=== PATIENT | female | born 1960 | race Caucasian/White ===

== ENCOUNTER 2018-02-19 12:32 | Emergency (ER) | payer BC ==
[2018-02-19 12:49] VITALS: BP 115/67
--- NOTE | 2018-02-19 12:53 | UC ---
Respiratory Complaint HPI - HPI Summary HPI Summary: Pt presents with body aches, head congestion, and dry cough for the last 4 days. She has felt feverish, but has not taken her temperature. Has also been taking OTC cold and flu medication with good relief. Does feel SOB at times, especially when coughing. Denies chest pain, abdominal pain, n/v/d/c. - History of Current Complaint Chief Complaint: UCGeneralIllness Stated Complaint: COUGH, AND CHEST CONGESTION Time Seen by Provider: 02/19/18 12:53 Hx Obtained From: Patient Onset/Duration: Gradual Onset Severity Initially: Moderate Severity Currently: Severe Pain Intensity: 9 Pain Scale Used: 0-10 Numeric Character: Cough: Nonproductive - Allergies/Home Medications Allergies/Adverse Reactions: Allergies Allergy/AdvReac Type Severity Reaction Status Date / Time No Known Allergies Allergy Verified 02/19/18 12:40 Home Medications: Home Medications SUMAtriptan SQ* [Imitrex SQ*] 02/19/18 [History] PMH/Surg Hx/FS Hx/Imm Hx Previously Healthy: Yes Neurological History: Migraine - Surgical History Surgical History: Yes Surgery Procedure, Year, and Place: tonsillectomy - Family History Known Family History: Positive: Unknown - Social History Occupation: Employed Full-time Lives: With Family Alcohol Use: Rare Substance Use Type: None Smoking Status (MU): Never Smoked Tobacco Review of Systems Constitutional: Other - Bodyaches Skin: Negative Eyes: Negative ENT: Ear Ache, Sinus Congestion Respiratory: Cough Cardiovascular: Negative Gastrointestinal: Negative Neurovascular: Negative Neurological: Headache Psychological: Negative All Other Systems Reviewed And Are Negative: Yes Physical Exam - Summary Physical Exam Summary: GENERAL: NAD. WDWN. No pain distress. SKIN: No rashes, sores, ulcers, masses, lesions. HEENT: Head: AT/NC Eyes: Conjunctiva clear without inflammation or discharge. Ears: Hearing grossly normal. TMs intact, no bulging, erythema, or edema. Nose: Nasal mucosa mildly swollen and erythematous with yellow/ clear discharge. TTP maxillary and frontal sinus. Throat: Posterior oropharynx without exudates, erythema, or tonsillar enlargement. Uvula midline. NECK: Supple. Nontender. No lymphadenopathy. CHEST: Moderate wheezing right>left. No r/r. No accessory muscle use. Breathing comfortably and in no distress. CV: RRR. Without m/r/g. Pulses intact. Brisk cap refill. NEURO: Alert. CN II-XII grossly intact. PSYCH: Age appropriate behavior. Triage Information Reviewed: Yes Vital Signs: Initial Vital Signs Temp 97.8 F 02/19/18 12:42 Pulse 73 02/19/18 12:42 Resp 20 02/19/18 12:42 BP 115/67 02/19/18 12:42 Pulse Ox 95 02/19/18 12:42 Diagnostic Evaluation - Laboratory O2 Sat by Pulse Oximetry: 95 Re-Evaluation - Re-Evaluation First Eval Re-Evaluation Time: 13:45 Change: Improved - SOB improved s/p duoneb. Formoso easier to get a deep breath. Lung sounds with decreased wheezing. Respiratory Course/Dx - Course Course Of Treatment: POC flu: negative. CXR: IMPRESSION: NO ACTIVE CARDIOPULMONARY DISEASE. Duoneb: improved. Suspect bronchitis and sinusitis - Differential Dx/Diagnosis Provider Diagnoses: Sinusitis. Bronchitis Discharge - Sign-Out/Discharge Documenting (check all that apply): Discharge - Discharge Plan Condition: Stable Disposition: HOME Prescriptions: Amoxicillin/Clavulanate TAB* [Augmentin TAB 875*] 875 mg PO BID #20 tab Patient Education Materials: Sinusitis (ED) Referrals: No Primary Care Phys,NOPCP [Primary Care Provider] - Additional Instructions: If you develop a fever, shortness of breath, chest pain, new or worsening symptoms - please call your PCP or go to the ED. - Billing Disposition and Condition Condition: STABLE Disposition: HOME
[2018-02-19] MEDS ORDERED: Albuterol/Ipratropium NEB.SOL* Albuterol 2.5 MG/Ipratropium 0.5 MG 3 ML INH ONE (12:57)
--- NOTE | 2018-02-19 13:24 | RAD ---
HISTORY: Cough COMPARISONS: None VIEWS: 4: Frontal dual-energy and lateral views of the chest. FINDINGS: CARDIOMEDIASTINAL SILHOUETTE: The cardiomediastinal silhouette is normal. JAGRUTI: The jagruti are normal. PLEURA: The costophrenic angles are sharp. No pleural abnormalities are noted. LUNG PARENCHYMA: The lungs are clear. ABDOMEN: The upper abdomen is clear. There is no subphrenic gas. BONES AND SOFT TISSUES: No bone or soft tissue abnormalities are noted. OTHER: None. IMPRESSION: NO ACTIVE CARDIOPULMONARY DISEASE.
[2018-02-19] MEDS ORDERED: Albuterol HFA INHALER* 8 gm MDI INH ONE (13:43)
== END 2018-02-19 13:55 | disposition home or self-care (01) ==
LOC: UCEAST 12:32
DX: J32.9 Chronic sinusitis, unspecified (principal); J40 Bronchitis, not specified as acute or chronic; G43.909 Migraine, unspecified, not intractable, without status migrainosus
CPT/HCPCS: 71046; 87502; 99203; A9270-GY; G0463